=== PATIENT | female | born 1960 | race African-American/Black ===

== ENCOUNTER 2019-08-15 11:36 | Emergency (ER) | payer SELFPAY ==
[~2019-08-15] VITALS: Ht 175.3 cm; Wt 104.3 kg
[2019-08-15] MEDS ORDERED: ACETAMINOPHEN 500 MG TABLET PO ONE (12:45)
--- NOTE | 2019-08-15 13:03 | RAD ---
EXAM: Right knee, 3 views. HISTORY: Pain. COMPARISON: None. FINDINGS: 3 views of the right knee are obtained. There is a revision right knee arthroplasty in expected position. There is no convincing loosening or periprosthetic fracture. There is a small joint effusion. There is enthesopathy along the superior patella. There is heterotopic ossification within the suprapatellar space. There is also benign osseous excrescence along the medial distal femur. IMPRESSION: Revision left knee arthroplasty in expected position. Small left knee effusion. Electronically signed by: Magdalena Briscoe MD (08/15/2019 1:00 PM) [facility]
--- NOTE | 2019-08-15 13:05 | RAD ---
EXAM: Abdomen acute complete. HISTORY: Pain. COMPARISON: 07/31/2019 FINDINGS: A frontal view of the chest and frontal upright and supine views of the abdomen are obtained. There is stable diffuse increased interstitial opacity. There is no consolidation, pleural effusion or pneumothorax. There is a stable prominent cardiac silhouette, a component of which is accentuated due to portable technique. There is gas and stool within the colon and rectum. There is no evidence of bowel obstruction. There are cholecystectomy clips. There is no free air. IMPRESSION: 1. Stable diffuse interstitial infiltrate. No consolidation is seen. 2. Nonobstructive bowel gas pattern. Electronically signed by: Magdalena Briscoe MD (08/15/2019 1:02 PM) [facility]
--- NOTE | 2019-08-15 13:10 | PHYS DOC ---
Past Medical History Past Medical History: High Cholesterol, Hypertension Past Surgical History: Hysterectomy, Other Additional Past Surgical Histo: three knee surgeries, gall stones Alcohol Use: None Drug Use: None Adult General Chief Complaint Chief Complaint: MULTIPLE COMPLAINTS [facility] HPI Patient is a 59 year old female who presented to ER today for evaluation of right knee pain off and on for the last 10 years. Patient had bilateral knee replacement in the past. Patient denies any injury, no fever, no trouble breathing, no chest pain. Patient also had been coughing up black stuff she said. Patient denies any chest pain. She constantly requests pain medication for her knee. All other ROS is negative unless otherwise noted in HPI Review of Systems Review of Systems See above Current Medications Current Medications Current Medications Medications (Trade) Dose Ordered Sig/Jazmin Start Time Stop Time Status Last Admin Dose Admin Acetaminophen (Tylenol) 1,000 mg 1X ONCE 08/15/19 12:45 08/15/19 12:46 DC Allergies Allergies Allergies Coded Allergies Type Severity Reaction Last Updated Verified No Known Drug Allergies 08/15/19 No Physical Exam Physical Exam See above Constitutional: Well developed, well nourished, no acute distress, non-toxic appearance. [] HENT: Normocephalic, atraumatic, bilateral external ears normal, oropharynx moist, no oral exudates, nose normal. [] Eyes: PERRLA, EOMI, conjunctiva normal, no discharge. [] Neck: Normal range of motion, no tenderness, supple, no stridor. [] Cardiovascular:Heart rate regular rhythm, no murmur [] Lungs & Thorax: Bilateral breath sounds clear to auscultation [] Abdomen: Bowel sounds normal, soft, no tenderness, no masses, no pulsatile masses. [] Skin: Warm, dry, no erythema, no rash. [] Back: No tenderness, no CVA tenderness. [] Extremities: Bilateral knee with scars from previous surgery, no swelling, no tenderness, deformity. Neurologic: Alert and oriented X 3, normal motor function, normal sensory function, no focal deficits noted. [] Psychologic: Affect normal, judgement normal, mood normal. [] Current Patient Data Vital Signs Vital Signs Date Time Temp Pulse Resp B/P (MAP) Pulse Ox O2 Delivery O2 Flow Rate FiO2 08/15/19 13:25 86 20 161/76 (104) 95 08/15/19 11:45 98.1 Room Air 98.1 EKG EKG [] Radiology/Procedures Radiology/Procedures [][address] [address] IMAGING REPORT Signed PATIENT: TEETEE PRESTON ACCOUNT: [id number] : 1960 LOCATION: ER AGE: 59 SEX: F EXAM STATUS: REG ER ORD. PHYSICIAN: ERICKA CURRIE DO REASON: right knee pain x 10 years, no recent injury PROCEDURE: KNEE RIGHT 3V EXAM: Right knee, 3 views. HISTORY: Pain. COMPARISON: None. FINDINGS: 3 views of the right knee are obtained. There is a revision right knee arthroplasty in expected position. There is no convincing loosening or periprosthetic fracture. There is a small joint effusion. There is enthesopathy along the superior patella. There is heterotopic ossification within the suprapatellar space. There is also benign osseous excrescence along the medial distal femur. IMPRESSION: Revision Right knee arthroplasty in expected position. Small Right knee effusion. Electronically signed by: Magdalena Briscoe MD (08/15/2019 1:00 PM) [facility] DICTATED and SIGNED BY: MAGDALENA BRISCOE MD DATE: 08/15/[address] [place], [place] [id number] [place] [address] IMAGING REPORT Signed PATIENT: TEETEE PRESTON ACCOUNT: [id number] : 1960 LOCATION: ER AGE: 59 SEX: F EXAM STATUS: REG ER ORD. PHYSICIAN: ERICKA CURRIE DO REASON: abdominal pain PROCEDURE: ACUTE ABDOMEN SERIES EXAM: Abdomen acute complete. HISTORY: Pain. COMPARISON: 07/31/2019 FINDINGS: A frontal view of the chest and frontal upright and supine views of the abdomen are obtained. There is stable diffuse increased interstitial opacity. There is no consolidation, pleural effusion or pneumothorax. There is a stable prominent cardiac silhouette, a component of which is accentuated due to portable technique. There is gas and stool within the colon and rectum. There is no evidence of bowel obstruction. There are cholecystectomy clips. There is no free air. IMPRESSION: 1. Stable diffuse interstitial infiltrate. No consolidation is seen. 2. Nonobstructive bowel gas pattern. Electronically signed by: Magdalena Briscoe MD (08/15/2019 1:02 PM) [facility] DICTATED and SIGNED BY: MAGDALENA BRISCOE MD DATE: 08/15/19 3232 Course & Med Decision Making Course & Med Decision Making Pertinent Labs and Imaging studies reviewed. (See chart for details) Patient got up and walked without a problem, she was told by this physician that we will not give her narcotic for chronic knee pain. Dragon Disclaimer Dragon Disclaimer This electronic medical record was generated, in whole or in part, using a voice recognition dictation system. Departure Departure Impression: Primary Impression: Chronic knee pain Additional Impression: Bronchitis Disposition: 01 HOME, SELF-CARE Condition: STABLE Referrals: NO PCP (PCP) follow up with your PCP NEXT WEEK. Patient Instructions: Acute Bronchitis, Chronic Pain Scripts Ibuprofen (IBUPROFEN) 800 Mg Tablet 800 MG PO PRN Q8HRS PRN for PAIN, #20 TAB Prov: ERICKA CURRIE DO 08/15/19 Azithromycin (ZITHROMAX) 250 Mg Tablet 1 PKG PO UD, #6 TAB Prov: ERICKA CURRIE DO 08/15/19 Problem Qualifiers ERICKA CURRIE DO Aug 15, 2019 13:10
[2019-08-15] MEDS ORDERED: IBUP-1060 PO (13:21)
[2019-08-15] MEDS ORDERED: AZIT250T PO (13:21)
[2019-08-15 13:25] VITALS: BP 161/76
== END 2019-08-15 13:25 | disposition home or self-care (01) ==
LOC: ER 11:36
DX: J40 Bronchitis, not specified as acute or chronic (principal); G89.29 Other chronic pain; M25.561 Pain in right knee; E78.00 Pure hypercholesterolemia, unspecified; I10 Essential (primary) hypertension
CPT/HCPCS: 73562; 74022; 99284